=== PATIENT | female | born 1955 | race Caucasian/White ===

== ENCOUNTER → 2016-09-24 | Outpatient (CLI) | payer OTHER ==
--- NOTE | 2016-09-24 16:17 | REP ---
Right shoulder series: Three views. History: Pain. Findings: The right glenohumeral and acromioclavicular joints are normally aligned. Periarticular soft tissues are unremarkable. No erosive changes seen. Impression: Negative right shoulder views. Signed by Patricio Stokes MD 09/24/2016 04:26 P
== END ==
LOC: M WUC 11:25
PROVIDERS: ATTEND Nurse Practitioner Family
DX: M25.511 Pain in right shoulder (principal)

== ENCOUNTER 2023-01-19 09:37 | Emergency (ER) | payer MEDICARE, OTHER ==
[~2023-01-19] VITALS: Ht 162.6 cm; Wt 113.0 kg
[2023-01-19] MEDS ORDERED: LEXA1TAB2 (10:12)
[2023-01-19] MEDS ORDERED: METF500T13 (10:12)
[2023-01-19] MEDS ORDERED: SIMV20TA22 (10:12)
[2023-01-19] MEDS ORDERED: FURO20TA2 (10:12)
[2023-01-19] MEDS ORDERED: LIDOCAINE 5% (LIDODERM) PATCH TD ONE (12:10)
[2023-01-19] MEDS ORDERED: NAPROXEN 250 MG TAB PO ONE (12:10)
[2023-01-19] MEDS ORDERED: LIDO5DIS41 TOP (12:19)
[2023-01-19 12:25] VITALS: BP 139/74
== END 2023-01-19 12:35 | disposition home or self-care (01) ==
LOC: M ED 09:37
DX: R07.9 Chest pain, unspecified (principal); E11.9 Type 2 diabetes mellitus without complications; I10 Essential (primary) hypertension; Z79.02 Long term (current) use of antithrombotics/antiplatelets; Z79.84 Long term (current) use of oral hypoglycemic drugs; Z79.899 Other long term (current) drug therapy

== ENCOUNTER 2023-05-08 21:04 | Emergency (ER) | payer MEDICARE, OTHER ==
[~2023-05-08] VITALS: Ht 162.6 cm; Wt 113.6 kg
[~2023-05-08 21:04] MED LIST: FURO20TA2; LEXA1TAB2; LIDO5DIS41 TOP; METF500T13; SIMV20TA22
[2023-05-08] MEDS ORDERED: ASPI81CH33 PO (21:16)
[2023-05-08 21:47] LABS: BASO # 0.1 10^3/uL (0.0-0.2); BASO % 0.5 % (0.0-1.0); EOS # 0.1 10^3/uL (0.0-0.5); EOS % 1.4 % (0.0-3.0); HEMATOCRIT 42.8 % (36.0-47.0); HEMOGLOBIN 13.9 g/dl (12.0-15.5); LYMPH # 1.9 10^3/uL (1.5-5.0); LYMPH % 19.6 % (24.0-44.0); MEAN CORPUSCULAR HEMOGLOBIN 29.6 pg (27.0-33.0); MEAN CORPUSCULAR HGB CONC 32.5 g/dl (32.0-36.5); MEAN CORPUSCULAR VOLUME 91.3 fl (80.0-96.0); MONO # 0.5 10^3/uL (0.0-0.8); NEUTROPHILS # 7.1 10^3/uL (1.5-8.5); NEUTROPHILS % 73.1 % (36.0-66.0); PLATELET COUNT, AUTOMATED 269 10^3/uL (150-450); RED BLOOD COUNT 4.69 10^6/uL (4.00-5.40); WHITE BLOOD COUNT 9.7 10^3/uL (4.0-10.0)
[2023-05-08 22:15] LABS: CPK CREATINE PHOSPHOKINASE 137 U/L (34-145); MB/CK RELATIVE INDEX 0.72 (< OR =4)
[2023-05-08 22:16] LABS: ALBUMIN 3.6 G/DL (3.2-5.2); ALKALINE PHOSPHATASE 71 U/L (46-116); ALT/SGPT 29 U/L (7.0-40); AST/SGOT 31 U/L (<34); BILIRUBIN,DIRECT 0.1 MG/DL (<0.4); BILIRUBIN,TOTAL 0.4 MG/DL (0.3-1.2); BLOOD UREA NITROGEN 10 MG/DL (9-23); CALCIUM LEVEL 9.3 MG/DL (8.3-10.6); CARBON DIOXIDE LEVEL 29 MMOL/L (20-31); CHLORIDE LEVEL 106 MMOL/L (98-107); CREATININE FOR GFR 0.72 MG/DL (0.55-1.30); GLOMERULAR FILTRATION RATE > 60.0 (>45); GLUCOSE, FASTING 129 MG/DL (74-106); POTASSIUM SERUM 4.4 MMOL/L (3.5-5.1); SODIUM LEVEL 142 MMOL/L (136-145); TOTAL PROTEIN 7.1 G/DL (5.7-8.2)
[2023-05-08] MEDS ORDERED: LORazepam 2 MG/ML 1ML VIAL IV STA (23:19)
[2023-05-08 23:23] VITALS: BP 146/69; TEMP 98; O2SAT 96
[2023-05-08 23:38] LABS: MAGNESIUM LEVEL 1.8 MG/DL (1.8-2.4)
[2023-05-08 23:44] LABS: FREE T4 0.94 NG/DL (0.89-1.76); THYROID STIMULATING HORMONE 6.168 uIU/ML (0.55-4.78)
[2023-05-08 23:51] LABS: CK-MB VALUE MASS < 1.0 NG/ML (<3.6); CPK CREATINE PHOSPHOKINASE 166 U/L (34-145)
[2023-05-09] MEDS ORDERED: ESCITALOPRAM OXALATE 10 MG TAB (LEXAPRO) PO ONE (00:20)
== END 2023-05-09 00:41 | disposition home or self-care (01) ==
LOC: M ED 21:04
DX: I44.0 Atrioventricular block, first degree (principal); I49.1 Atrial premature depolarization; I44.4 Left anterior fascicular block; E11.9 Type 2 diabetes mellitus without complications; K21.9 Gastro-esophageal reflux disease without esophagitis; F10.10 Alcohol abuse, uncomplicated; Z79.84 Long term (current) use of oral hypoglycemic drugs; Z79.82 Long term (current) use of aspirin; Z79.899 Other long term (current) drug therapy
CPT/HCPCS: 71046; 80048; 80076; 82550; 82553; 83735; 83880; 84439; 84443; 84484; 85025; 93005; 96374; 99284; J2060

== ENCOUNTER 2023-08-20 17:54 | Emergency (ER) | payer MEDICARE, OTHER ==
[~2023-08-20] VITALS: Ht 162.6 cm; Wt 113.6 kg
[~2023-08-20 17:54] MED LIST changes: +ASPI81CH33 PO
[2023-08-20 18:19] VITALS: TEMP 98.8
[2023-08-20 18:28] LABS: BASO # 0.1 10^3/uL (0.0-0.2); BASO % 0.5 % (0.0-1.0); EOS # 0.2 10^3/uL (0.0-0.5); HEMATOCRIT 41.5 % (36.0-47.0); HEMOGLOBIN 13.3 g/dl (12.0-15.5); LYMPH # 2.3 10^3/uL (1.5-5.0); LYMPH % 22.3 % (24.0-44.0); MEAN CORPUSCULAR HEMOGLOBIN 29.8 pg (27.0-33.0); MEAN CORPUSCULAR VOLUME 92.8 fl (80.0-96.0); MONO # 0.6 10^3/uL (0.0-0.8); MONO % 5.7 % (2.0-8.0); NEUTROPHILS # 7.1 10^3/uL (1.5-8.5); NEUTROPHILS % 69.3 % (36.0-66.0); PLATELET COUNT, AUTOMATED 284 10^3/uL (150-450); RED BLOOD COUNT 4.47 10^6/uL (4.00-5.40); WHITE BLOOD COUNT 10.2 10^3/uL (4.0-10.0)
[2023-08-20 18:55] LABS: LIPASE 24 U/L (12-53)
[2023-08-20 18:57] LABS: ALBUMIN 3.5 G/DL (3.2-5.2); ALKALINE PHOSPHATASE 61 U/L (46-116); ALT/SGPT 25 U/L (7.0-40); AST/SGOT 24 U/L (<34); BILIRUBIN,DIRECT 0.2 MG/DL (<0.4); BILIRUBIN,TOTAL 0.6 MG/DL (0.3-1.2); BLOOD UREA NITROGEN 15 MG/DL (9-23); CALCIUM LEVEL 9.2 MG/DL (8.3-10.6); CARBON DIOXIDE LEVEL 30 MMOL/L (20-31); CHLORIDE LEVEL 106 MMOL/L (98-107); CK-MB VALUE MASS < 1.0 NG/ML (<3.6); CPK CREATINE PHOSPHOKINASE 81 U/L (34-145); CREATININE FOR GFR 0.65 MG/DL (0.55-1.30); GLOMERULAR FILTRATION RATE > 60.0 (>45); GLUCOSE, FASTING 110 MG/DL (74-106); MB/CK RELATIVE INDEX 1.23 (< OR =4); POTASSIUM SERUM 4.3 MMOL/L (3.5-5.1); SODIUM LEVEL 143 MMOL/L (136-145); TOTAL PROTEIN 6.9 G/DL (5.7-8.2)
[2023-08-20] MEDS ORDERED: METF-839 PO (19:20)
[2023-08-20] MEDS ORDERED: VENTAER INH (19:20)
[2023-08-20] MEDS ORDERED: LORazepam 2 MG/ML 1ML VIAL IV STA (19:35)
[2023-08-20] MEDS ORDERED: ISOVUE-370 76% 100ML VIAL As Ordered ONE (19:37)
[2023-08-20 20:03] LABS: CK-MB VALUE MASS < 1.0 NG/ML (<3.6)
[2023-08-20 20:06] LABS: CPK CREATINE PHOSPHOKINASE 78 U/L (34-145); MB/CK RELATIVE INDEX 1.28 (< OR =4)
[2023-08-20 21:00] VITALS: BP 149/86; O2SAT 95
[2023-08-21] MEDS ORDERED: APIXABAN 5 MG TAB (ELIQUIS) PO ONE (00:45)
[2023-08-21] MEDS ORDERED: ATIV1TAB10 PO ×2 (00:46→01:18)
[2023-08-21] MEDS ORDERED: ELIQ5TAB PO ×2 (00:46→01:18)
== END 2023-08-21 01:30 | disposition home or self-care (01) ==
LOC: EDBD 17:54 → M ED 17:54
DX: I26.99 Other pulmonary embolism without acute cor pulmonale (principal); F41.1 Generalized anxiety disorder; K76.0 Fatty (change of) liver, not elsewhere classified; I10 Essential (primary) hypertension; E78.5 Hyperlipidemia, unspecified; F10.10 Alcohol abuse, uncomplicated; Z86.79 Personal history of other diseases of the circulatory system; Z79.52 Long term (current) use of systemic steroids; Z79.4 Long term (current) use of insulin; Z79.01 Long term (current) use of anticoagulants; Z79.899 Other long term (current) drug therapy
CPT/HCPCS: 71045; 71275; 80048; 80076; 82550; 82553; 83690; 83880; 84484; 85025; 87486; 87581; 87633; 87798; 93005; 93041; 94760; 96374; 99284; J2060; Q9967

== ENCOUNTER → 2023-08-26 | Outpatient (CLI) | payer MEDICARE, OTHER ==
[~2023-08-26] MED LIST changes: +ATIV1TAB10 PO; +ELIQ5TAB PO; +METF-839 PO; +VENTAER INH
== END ==
LOC: M RAD 14:37
PROVIDERS: ATTEND Emergency Medicine
DX: M79.604 Pain in right leg (principal); M79.605 Pain in left leg

== ENCOUNTER → 2024-04-19 | Outpatient (CLI) | payer MEDICARE, OTHER | LOC: M RAD 08:55 | PROVIDERS: ATTEND Physician Assistant Medical | DX: M79.605 Pain in left leg (principal); M79.89 Other specified soft tissue disorders ==